=== PATIENT | female | born 1985 | race African-American/Black ===

== ENCOUNTER 2018-05-16 12:24 | Emergency (ER) | payer MEDICAID, MEDICARE, OTHER ==
[~2018-05-16] VITALS: Ht 157.5 cm; Wt 50.3 kg
[~2018-05-16 12:24] MED LIST: CEPHALEXIN500 MG ORAL; CLOTRIMAZOLE15 GM TOPIC; NKM; NYSTATIN CREAM15 GM TOPIC; SODIUM SULAMYD BOTH EYES
[2018-05-16 12:41] VITALS: BP 112/61
--- NOTE | 2018-05-16 12:41 | NUR ---
ED Nurse Note: pt present at ER from home, aao x4, 8 weeks of c/o n/v but no diarrhea and no abdominal pain. pt reported that she had bright red scant blood when she wiped it and she had scant blood in sputum when she coughed since last night. skin intact and cooperative.
[2018-05-16] MEDS ORDERED: Metoclopramide 10mg/2ml Inj IVP ONE (12:45)
[2018-05-16 13:04] LABS: APPEARANCE,URINE CLEAR; BILIRUBIN, URINE NEGATIVE (NEGATIVE); COLOR,URINE PALE YELLOW; GLUCOSE, URINE (UA) NEGATIVE (NEGATIVE); KETONES,URINE NEGATIVE (NEGATIVE); LEUKOCYTE ESTERASE ,URINE NEGATIVE (NEGATIVE); NITRITE,URINE NEGATIVE (NEGATIVE); PH,URINE 7 (4.5-8.0); PROTEIN,URINE NEGATIVE (NEGATIVE); UROBILINOGEN,URINE NORMAL MG/DL (0.0-1.0)
[2018-05-16 13:09] LABS: BASOPHILS % (AUTO) 0.6 % (0.0-2.0); EOSINOPHILS % (AUTO) 0.9 % (0.0-3.0); HEMATOCRIT 37.8 % (37.0-47.0); HEMOGLOBIN 12.8 G/DL (12.0-16.0); LYMPHOCYTES % (AUTO) 18.4 % (20.0-45.0); MEAN CORPUSCULAR VOLUME 83 FL (80-99); MONOCYTES % (AUTO) 8.3 % (1.0-10.0); NEUTROPHILS % (AUTO) 71.8 % (45.0-75.0); PLATELET COUNT 238 K/UL (150-450); RED BLOOD COUNT 4.53 M/UL (4.20-5.40); RED CELL DISTRIBUTION WIDTH 12.5 % (11.6-14.8); WHITE BLOOD COUNT 7.5 K/UL (4.8-10.8)
[2018-05-16 13:11] LABS: ANION GAP 8 mmol/L (5-15); BLOOD UREA NITROGEN 6 mg/dL (7-18); CALCIUM 9.5 MG/DL (8.5-10.1); CARBON DIOXIDE 26 MMOL/L (21-32); CHLORIDE 101 MMOL/L (98-107); CREATININE 0.7 MG/DL (0.55-1.30); POTASSIUM 3.4 MMOL/L (3.5-5.1); SODIUM 135 MMOL/L (136-145)
[2018-05-16 13:15] LABS: ALANINE AMINOTRANSFERASE 22 U/L (12-78); ALBUMIN 3.5 G/DL (3.4-5.0); ALBUMIN/GLOBULIN RATIO 0.9 (1.0-2.7); ALKALINE PHOSPHATASE 49 U/L (46-116); ASPARTATE AMINO TRANSFERASE 36 U/L (15-37); BILIRUBIN,TOTAL 0.4 MG/DL (0.2-1.0)
--- NOTE | 2018-05-16 13:49 | Emergency Room Report ---
History of Present Illness General Chief Complaint: Complications Source: Patient Present Illness HPI Patient reports that she is approximately 8 weeks has had morning sickness reports increased nausea vomiting she felt that there was a trace of blood on the last vomit Denies any chest pain or short of breath had some mild abdominal cramp Patient is a Denies any chest pain or shortness of breath denies any fevers or chills denies any dysuria or frequency Allergies: Coded Allergies: No Known Allergies (Unverified , 05/02/15) Patient History Past Medical History: see triage record Pertinent Family History: none Last Menstrual Period: 9 weeks ago Now: Yes : 1 Para: 0 Reviewed Nursing Documentation: PMH: Agreed; PSxH: Agreed Nursing Documentation-PMH Past Medical History: No Stated History Hx Asthma: Yes Review of Systems All Other Systems: negative except mentioned in HPI Physical Exam Vital Signs Date Time Temp Pulse Resp B/P (MAP) Pulse Ox O2 Delivery O2 Flow Rate FiO2 05/16/18 12:32 98.2 82 14 112/61 100 Room Air Sp02 EP Interpretation: reviewed, normal General Appearance: well appearing, no apparent distress Head: normocephalic, atraumatic Eyes: bilateral eye PERRL, bilateral eye EOMI ENT: hearing grossly normal, normal pharynx, TMs + canals normal, uvula midline Neck: full range of motion, supple, no meningismus, no bony tend Respiratory: lungs clear, normal breath sounds, no rhonchi, no respiratory distress, no retraction, no accessory muscle use Cardiovascular #1: normal peripheral pulses, regular rate, rhythm, no edema, no gallop, no JVD, no murmur Gastrointestinal: normal bowel sounds, non tender - Fairly early in abdomen is not palpated, soft, no mass, no organomegaly, non-distended, no guarding, no hernia, no pulsatile mass, no rebound Genitourinary: no CVA tenderness Musculoskeletal: normal inspection Neurologic: oriented x3, responsive, angiography technologist III-XII nml as tested, motor strength/ tone normal, sensory intact Psychiatric: mood/affect normal Skin: normal color, no rash, warm/dry, palpation normal Lymphatic: normal inspection, no adenopathy Medical Decision Making Diagnostic Impression: Primary Impression: Hyperemesis gravidarum Additional Impression: Vomiting ER Course Multiple differentials considered Given the patient's discomfort and presentation ultrasound and blood work was initiated Ultrasound shows intrauterine Patient is dehydrated and had further anti-emetics along with hydration feels significantly improved and will have initial conservative outpatient trial CBC normal Chemistry normal UA negative CT/MRI/US Diagnostic Results CT/MRI/US Diagnostic Results : Impression pelvic ultrasoundIMPRESSION: Limited evaluation. Single living IUP 9 weeks 2 days gestational age. This is based on suboptimal transabdominal scanning. Last Vital Signs Date Time Temp Pulse Resp B/P (MAP) Pulse Ox O2 Delivery O2 Flow Rate FiO2 05/16/18 12:41 98.2 82 14 112/61 100 Room Air Status: improved Disposition: HOME, SELF-CARE Condition: Improved Scripts Metoclopramide Hcl* (REGLAN*) 10 Mg Tablet 10 MG ORAL BID, #12 TAB Prov: Salvador Turk DO 05/16/18 Referrals: NOT CHOSEN IPA/MD,REFERRING (PCP) Additional Instructions: Patient is provided with the discharge instructions notified to follow up with primary doctor in the next 2-3 days otherwise return to the er with any worsening symptoms. Please note that this report is being documented using [employer] technology. This can lead to erroneous entry secondary to incorrect interpretation by the dictating instrument. Salvador Turk DO May 16, 2018 13:49
[2018-05-16] MEDS ORDERED: REGLAN10 MG ORAL (14:02)
[2018-05-16 14:30] VITALS: BP 126/74
--- NOTE | 2018-05-16 14:30 | NUR ---
ED Nurse Note: pt was cleared to be discharged from [facility]. pt received prescription and discharge instruction and verbalized understanding. iv and id band were removed. pt ambulated to be discharged.
--- NOTE | 2018-05-16 14:39 | Diagnostic Imaging Report ---
Indication: Positive test. Nausea vomiting Technique: Grayscale and duplex Doppler imaging of the pelvis performed utilizing a transabdominal scan. Comparison: None Findings: Examination shows a single living intrauterine . heart tones demonstrated. Gestational age based on crown-rump length is 9 weeks 2 days +/- 6 days. A yolk sac is noted. The study is limited as the patient refused the endovaginal portion of the exam. No gross abnormalities of either ovary are identified but suboptimally seen. There is suggestion of a left ovarian cyst measuring 1.6 cm. IMPRESSION: Limited evaluation. Single living IUP 9 weeks 2 days gestational age. This is based on suboptimal transabdominal scanning.
== END 2018-05-16 14:30 | disposition home or self-care (01) ==
LOC: EMR 13:00
DX: O21.0 Mild hyperemesis gravidarum (principal); O99.511 Diseases of the respiratory system complicating pregnancy, first trimester; Z3A.09 9 weeks gestation of pregnancy; J45.909 Unspecified asthma, uncomplicated
CPT/HCPCS: 36415; 76801; 80053; 81003; 83690; 84702; 85025; 96361; 96374; 99284; J2765

== ENCOUNTER 2018-05-27 10:58 | Emergency (ER) | payer OTHER, MEDICAID ==
[~2018-05-27] VITALS: Ht 157.5 cm; Wt 52.6 kg
[~2018-05-27 10:58] MED LIST changes: +REGLAN10 MG ORAL
[2018-05-27 11:34] VITALS: BP 124/80
--- NOTE | 2018-05-27 11:34 | NUR ---
ED Nurse Note: PT WALKED IN TO ER TODAY FROM HOME. AOX4. PT C/O FACIAL SWELLING AND PAIN, 9/10 AROUND LEFT NARES X YESTERDAY. PT SUSPECTS THAT IT MAY BE RELATED TO STARTING METOCLOPRAMIDE X 3 DAYS AGO. PT STATES IT WAS PRESCRIBED BY [facility] DUE TO NAUSEA AND VOMITING FROM . AIRWAYS CLEAR AND NO SIGNS OF RESPIRATORY DISTRESS OR RETRACTIONS NOTED.
[2018-05-27] MEDS ORDERED: TYLENOL EXTRA500 MG ORAL (12:19)
[2018-05-27] MEDS ORDERED: AMOXICILLIN500 MG ORAL (12:19)
--- NOTE | 2018-05-27 12:19 | Emergency Room Report ---
History of Present Illness General Chief Complaint: General Complaint Source: Patient Present Illness HPI 32-year-old female patient presents the ER complaining of left-sided facial swelling for the past 2 days. Reports she thinks may be related to the medication that she began taking last Sunday, states she was prescribed Reglan for vomiting symptoms. Denies vomiting symptoms currently. Reports this is her first . Denies vaginal bleeding or abdominal pain. Denies fever, chest pain, shortness of breath. Denies tooth pain or ear pain. Denies itching or pain. Denies ear pain. Allergies: Coded Allergies: No Known Allergies (Unverified , 05/02/15) Patient History Past Medical History: see triage record Now: Yes - 10 weeks Reviewed Nursing Documentation: PMH: Agreed; PSxH: Agreed Nursing Documentation-PMH Past Medical History: No History, Except For Hx Asthma: Yes Review of Systems All Other Systems: negative except mentioned in HPI Physical Exam Vital Signs Date Time Temp Pulse Resp B/P (MAP) Pulse Ox O2 Delivery O2 Flow Rate FiO2 05/27/18 11:01 98.4 97 20 128/82 95 Room Air Sp02 EP Interpretation: reviewed, normal General Appearance: well appearing, no apparent distress, alert, GCS 15, non- toxic Head: normocephalic, atraumatic, other - Mild left-sided facial swelling Eyes: bilateral eye normal inspection, bilateral eye PERRL ENT: hearing grossly normal, normal pharynx, no angioedema, normal voice, TMs + canals normal, uvula midline, moist mucus membranes, other - No gum erythema or abscess noted, no tooth tender to palpation, dental caries and broken teeth noted Neck: full range of motion Respiratory: lungs clear, normal breath sounds, no rhonchi, no respiratory distress, no accessory muscle use, no wheezing, speaking full sentences Cardiovascular #1: regular rate, rhythm, no edema Musculoskeletal: back normal, digits/nails normal, gait/station normal, normal range of motion, non-tender Neurologic: alert, oriented x3, responsive, motor strength/tone normal, sensory intact Psychiatric: mood/affect normal Medical Decision Making PA Attestation Dr. Brar is my supervising Physician whom patient management has been discussed with. Diagnostic Impression: Primary Impression: Dental infection Additional Impression: Swelling of left side of face ER Course Pt. presents to the ED c/o left-sided face swelling. Ddx considered but are not limited to cellulitis, abscess, dental caries, gingivitis, adverse reaction to medication, allergic reaction, otitis media. Does not require imaging at this time. Vital signs: are WNL, pt. is afebrile ED INTERVENTIONS: Pain medication provided in the ER. Nontoxic appearing, speaking full sentences, no active draining, mild edema, no trismus or vision changes. No signs of abscess, no fluctuance, erythema or edema. Patient denies chest pain, shortness of breath. No angioedema, lungs clear to auscultation, no stridor, low suspicion for anaphylaxis. Likely infection causing symptoms, will provide patient with antibiotics. Patient seen by Dr. Brar, agrees with assessment treatment plan. Follow-up with [facility]. follow-up with dentist. F/u with PCP and dentist for further treatment. DISCHARGE: -Rx provided for Amoxicillin Rx provided for Tylenol At this time pt. is stable for d/c to home. Patient is resting comfortably, in no acute distress, nontoxic appearing, talking and smiling without difficulty. Will provide printed patient care instructions and any necessary prescriptions. Care plan and follow up instructions have been discussed with the patient prior to discharge. Patient instructed to follow-up with primary care provider in 2 - 3 days. Followup with dentist. Patient questions asked and answered. Patient reports understanding and agreement to treatment plan. ER precautions given. Patient instructed to return to ER immediately for any new or worsening of symptoms including but not limited to fever, worsening of pain symptoms, worsening of erythema, red streaking. - Please note that this Emergency Department Report was dictated using [employer] fin[employer] technology software, occasionally this can lead to erroneous entry secondary to interpretation by the dictation equipment. Last Vital Signs Date Time Temp Pulse Resp B/P (MAP) Pulse Ox O2 Delivery O2 Flow Rate FiO2 05/27/18 11:34 98.2 92 18 124/80 98 Room Air Disposition: HOME, SELF-CARE Condition: Stable Scripts Acetaminophen* (TYLENOL EXTRA STRENGTH*) 500 Mg Tablet 500 MG ORAL Q8H PRN for Prn Headache/Temp > 101, #30 TAB 0 Refills Prov: Syed Salinas PCraig 05/27/18 Amoxicillin* (AMOXIL*) 500 Mg Capsule 500 MG ORAL EVERY 8 HOURS for 7 Days, #21 CAP Prov: Syed Salinas 05/27/18 Patient Instructions: Dental Abscess, [id number] Additional Instructions: Followup with [facility] in 1-2 days. Follow-up with dentist in 1-2 days. Take medications as directed. Patient questions asked and answered. ER precautions given, patient instructed to return to ER immediately for any new or worsening of symptoms. Syed Salinas May 27, 2018 12:19
[2018-05-27 12:52] VITALS: BP 128/78
--- NOTE | 2018-05-27 12:53 | NUR ---
ED Nurse Note: pt cleared to be d/c per ER Provider, pt discharge instruction/aftercare instruction with prescription provided, pt education done via discussion and hand out, pt advised to follow up with dentist or return to ed, pt verbalized understanding and agrees with plan, pt ambulatory w/ steady gait, vss, resp even and unlabored, all belongings left w/ pt.
== END 2018-05-27 12:54 | disposition home or self-care (01) ==
LOC: EMR 12:45
DX: O26.891 Other specified pregnancy related conditions, first trimester (principal); Z3A.10 10 weeks gestation of pregnancy; K04.7 Periapical abscess without sinus; J45.909 Unspecified asthma, uncomplicated
CPT/HCPCS: 99282